=== PATIENT | male | born 2000 | race Caucasian/White ===

== ENCOUNTER 2024-10-16 19:07 | Emergency (ER) | payer BC ==
[~2024-10-16] VITALS: Ht 172.7 cm; Wt 81.6 kg
[2024-10-17] MEDS: dexaMETHasone SOD PHOSPHATE 4 MG/ML VIAL IM ONE
[2024-10-17] MEDS ORDERED: dexaMETHasone SOD PHOSPHATE 4 MG/ML VIAL ONE (01:02)
[2024-10-17] MEDS ORDERED: IBUP-1490 PO (01:36)
[2024-10-17 02:29] VITALS: BP 134/88; TEMP 97.9; O2SAT 100
== END 2024-10-17 02:29 | disposition home or self-care (01) ==
LOC: ER 19:26
DX: M54.41 Lumbago with sciatica, right side (principal); Z60.2 Problems related to living alone
CPT/HCPCS: 99285; 72131; 96372; J1100